=== PATIENT | female | born 1985 | race Caucasian/White ===

== ENCOUNTER → 2016-11-02 | Outpatient (CLI) | payer MEDICAID ==
[~2016-11-02] MED LIST: FERR200T PO; PREN1CHW7 PO; STRETAB
== END ==
LOC: HPND 08:25
PROVIDERS: ATTEND Obstetrics & Gynecology
DX: O98.513 Other viral diseases complicating pregnancy, third trimester (principal); O09.293 Supervision of pregnancy with other poor reproductive or obstetric history, third trimester; Z3A.31 31 weeks gestation of pregnancy
CPT/HCPCS: 76816

== ENCOUNTER 2016-11-17 20:26 | Emergency (ER) | payer MEDICAID ==
--- NOTE | 2016-11-17 21:35 | PD ---
HPI Chief Complaint contractions Date Seen: Nov 17, 2016 Travel History International Travel<30 Days: No Contact w/Intl Traveler<30Days: No History of Present Illness HPI 31 yo @ 35w2d. care with [facility] this third trimester after transfer of care. Hep C. Patient reports irregular UC this third trimester. Her SVE is the office last week was 1cm/thick per patient. Today she reports UC every 12 min this evening , now a little closer and a little stronger. No LOF, VB. +FM. Denies urinary symptoms or GI symptoms. History Past Medical History Narrative Medical Hep C Smoker Obstetric History Obstetric History x 4 Past Surgical History Surgical History: No Previous Surgery Family History Family History: Negative Social History Alcohol Use: No Tobacco Use: Yes Substance Abuse: No Allergies-Medications (Allergen,Severity, Reaction): Coded Allergies: Flagyl (Verified Allergy, Intermediate, fever, nausea, diarrhea, 11/13/16) Iodine (Verified Allergy, Intermediate, Anaphylaxis, 11/13/16) Penicillin (Verified Allergy, Intermediate, nausea, diarrhea, 11/13/16) Home Meds Active Scripts Vit W/ Ferric Phospha (Vitafol Gummies 3.33-0.333-34.8 mg)1 Chw Chw3.33 Chew PO DAILY #60 CHEW Ref 2 Prov:Steph Rios 10/26/16 Vit B Comp/C/FA/Iron Sulf/Ricardo (Stress Formula with Iron Tab)1 Each Tablet1 Caplet .ROUTE DAILY PRN (Nutritional Supplement) #30 CAPLET Ref 1 Prov:Steph Rios 10/19/16 Ferrous Sulfate (Feosol)200 Mg [id number] Mg PO DAILY #30 TAB Ref 1 Prov:Steph Rios 10/19/16 W/O Vit A W/ Fe Carbo (Prenate Mini 18-0.6-0.4-350 mg)1 Cap Cap Sample #2 Prov:Steph Rios 10/19/16 Review of Systems General / Constitutional: No: Fever, Chills Eyes: No: Blurred Vision HENT: No: Headaches, Lightheadedness Cardiovascular: No: Chest Pain or Discomfort, Palpitations Respiratory: No: Cough, Short of Breath Gastrointestinal: Abdominal Pain (mild contractions), No: Nausea, Vomiting, Diarrhea Genitourinary: No: Urgency, Frequency, Dysuria, Discharge, Vaginal Bleeding Musculoskeletal: No: Limited ROM, Weakness, Cramping, Edema Skin: No Rash, No Itching, No Lesions Neurologic: No: Syncope, Focal Abnormalities Physical Exam Narrative GENERAL: Well-nourished, well-developed patient. NAD SKIN: Warm and dry. HEAD: Normocephalic and atraumatic. EYES: No scleral icterus. No injection or drainage. ENT: No nasal drainage noted. Mucous membranes pink. Airway patent. NECK: trachea midline. No JVD. CARDIOVASCULAR: Regular rate RESPIRATORY: No accessory muscle use. ABDOMEN/GI: Abdomen soft, non-tender, no rebound, no guarding Gravid GENITOURINARY: External Genitalia: intact and normal in appearance BUS glands: [-] SVE: 1cm external OS, internal OS closed, 50%/-3 TOCO: Irregular UC q 4-7min FHT's: Category: I Baseline:120 Reactive: + Variability: mod Decels: [-] EXTREMITIES: No cyanosis or edema. BACK: Nontender without obvious deformity. NEUROLOGICAL: Awake and alert. Motor and sensory grossly within normal limits. Normal speech. Data Data Vital Signs Reviewed: Yes Orders Vital Signs (Adult) .ON ADMISSION (11/17/16 20:58) ^ Labor Status (11/17/16 20:58) ^ Non Stress Test (11/17/16 20:58) ^ Hydration (11/17/16 20:58) Labs UA dip: dark urine, +Moderate ketones MDM Narrative Course / MDM 35 weeks Irregular UC, No labor or cervical dilation Dehydration UA with ketones Oral hydration Terb given x 1 CAT I FHT Plan Resolved UC D/c home Hydration and labor precautions F/[facility] with [facility] Diagnosis Diagnosis: Primary Impression: uterine contractions in third trimester, antepartum Additional Impressions: Dehydration 35 weeks gestation of Victoria Hudson MD Nov 17, 2016 21:35
[2016-11-17] MEDS ORDERED: TERBUTALINE INJ 1 MG/ML AMP SQ ONE (22:50)
[2016-11-17 22:53] VITALS: BP 111/72; PULSE 70
[2016-11-17 23:00] VITALS: RESP 18
== END 2016-11-18 00:30 | disposition home or self-care (01) ==
LOC: HOBED 20:26
DX: O62.9 Abnormality of forces of labor, unspecified (principal); O26.893 Other specified pregnancy related conditions, third trimester; E86.0 Dehydration; Z86.19 Personal history of other infectious and parasitic diseases; Z72.0 Tobacco use; Z3A.35 35 weeks gestation of pregnancy
CPT/HCPCS: 59025; 96372; 99284; J3105

== ENCOUNTER → 2016-11-29 | Outpatient (CLI) | payer MEDICAID ==
[~2016-11-29] MED LIST changes: -FERR200T PO
== END ==
LOC: HPND 08:48
PROVIDERS: ATTEND Obstetrics & Gynecology
DX: O98.513 Other viral diseases complicating pregnancy, third trimester (principal); O09.293 Supervision of pregnancy with other poor reproductive or obstetric history, third trimester; Z3A.35 35 weeks gestation of pregnancy
CPT/HCPCS: 76816

== ENCOUNTER 2016-12-28 09:43 | Inpatient (IN) | payer MEDICAID ==
[2016-12-28] VITALS (66 sets, daily range): BP systolic 91–212; BP diastolic 42–94; PULSE 18–134; RESP 17–18; TEMP 97.7–98.6; O2SAT 100
--- NOTE | 2016-12-28 10:56 | HHI.HP ---
HPI Chief Complaint leaking fluid Date Seen: Dec 28, 2016 Time Seen: 10:40 Travel History International Travel<30 Days: No Contact w/Intl Traveler<30Days: No Known Affected Area: No History of Present Illness HPI Pt is a 31 yo at 39 weeks and 2 days. pt presents with h/o ruptured membranes at 07:30. She does not feel any contractions. Cervix is 4cm, and Amniosure confirms SROM. care t [facility], previously uncomplicated. GBS negative. 1/2 PPD smoker Weeks Gestation: 39 Para: 4 : 5 History Past Medical History Narrative Medical Hep C , not on medication, low viral load Past Surgical History Surgical History: No Previous Surgery Family History Family History: Negative Social History Alcohol Use: No Tobacco Use: Yes (/2 PPD) Substance Abuse: No Allergies-Medications (Allergen,Severity, Reaction): Coded Allergies: iodine (Unverified Allergy, Intermediate, Anaphylaxis, 12/22/16) metronidazole (Unverified Allergy, Intermediate, fever, nausea, diarrhea, 12/22/16) penicillin G (Unverified Allergy, Intermediate, nausea, diarrhea, 12/22/16) potassium iodide (Unverified Allergy, Intermediate, Anaphylaxis, 12/22/16) povidone-iodine (Unverified Allergy, Intermediate, Anaphylaxis, 12/22/16) sodium iodide (Unverified Allergy, Intermediate, Anaphylaxis, 12/22/16) sodium iodide (Unverified Allergy, Intermediate, Anaphylaxis, 12/22/16) Home Meds Active Scripts Vit W/ Ferric Phospha (Vitafol Gummies 3.33-0.333-34.8 mg) 1 Chw Chw, 3.33 CHEW PO DAILY, #60 CHEW 2 Refills Prov:Steph Rios 10/26/16 Vit B Comp/C/FA/Iron Sulf/Ricardo (Stress Formula with Iron Tab) 1 Each Tablet, 1 CAPLET .ROUTE DAILY Y for Nutritional Supplement, #30 CAPLET 1 Refill Prov:Steph Rios 10/19/16 W/O Vit A W/ Fe Carbo (Prenate Mini 18-0.6-0.4-350 mg) 1 Cap Cap Prov:Steph Rios 10/19/16 Review of Systems Except as stated in HPI: all other systems reviewed are Neg Physical Exam Narrative GENERAL: Well-nourished, well-developed patient. SKIN: Warm and dry. HEAD: Normocephalic and atraumatic. EYES: No scleral icterus. No injection or drainage. ENT: No nasal drainage noted. Mucous membranes pink. Airway patent. NECK: Supple, trachea midline. No JVD. CARDIOVASCULAR: Regular rate and rhythm without murmurs, gallops, or rubs. RESPIRATORY: Breath sounds equal bilaterally. No accessory muscle use. BREASTS: Bilateral exam showed no masses , no retractions, no nipple discharge. ABDOMEN/GI: Abdomen soft, non-tender, bowel sounds present, no rebound, no guarding Gravid to [-] weeks size Fundal Height: [-] GENITOURINARY: External Genitalia: intact and normal in appearance BUS glands: [-] Cervix: [soft] Dilatation: [4cm-] Effacement: [705-] Station: [-] Presentation: [-vertex] Membranes: [ ruptured] Uterine Contractions: [1-2 minutes-] FHT's: Category: [-1 Baseline: [130] Reactive: [] Variability: [-] Decels: [none] EXTREMITIES: No cyanosis or edema. BACK: Nontender without obvious deformity. No CVA tenderness. NEUROLOGICAL: Awake and alert. Motor and sensory grossly within normal limits. Five out of 5 muscle strength in all muscle groups. Normal speech. Caprini VTE Risk Assessment Caprini Risk Assessment Model Point Value = 1 Point Value = 2 Point Value = 3 Point Value = 5 Age 41-60 Minor surgery BMI > 25 kg/m2 Swollen legs Varicose veins or History of unexplained or recurrent spontaneous Oral contraceptives or hormone replacement Sepsis (< 1 month) Serious lung disease, including pneumonia (< 1 month) Abnormal pulmonary function Acute myocardial infarction Congestive heart failure (< 1 month) History of inflammatory bowel disease Medical patient at bed rest Age 61-74 Arthroscopic surgery Major open surgery (> 45 min) Laparoscopic surgery (> 45 min) Malignancy Confined to bed (> 72 hours) Immobilizing plaster cast Central venous access Age >= 75 History of VTE Family history of VTE Factor V Leiden Prothrombin [id number] Lupus anticoagulant Anticardiolipin antibodies Elevated serum homocysteine Heparin-induced thrombocytopenia Other congenital or acquired thrombophilia Stroke (< 1 month) Elective arthroplasty Hip, pelvis, or leg fracture Acute spinal cord injury (< 1 month) Prophylaxis Regimen Total Risk Factor Score Risk Level Prophylaxis Regimen 0-1 Low Early ambulation 2 Moderate Order ONE of the following: *Sequential Compression Device (SCD) *Heparin 5000 units SQ BID 3-4 Higher Order ONE of the following medications: *Heparin 5000 units SQ TID *Enoxaparin/Lovenox 40 mg SQ daily (WT < 150 kg, CrCl > 30 mL/min) *Enoxaparin/Lovenox 30 mg SQ daily (WT < 150 kg, CrCl > 10-29 mL/min) *Enoxaparin/Lovenox 30 mg SQ BID (WT < 150 kg, CrCl > 30 mL/min) AND/OR *Sequential Compression Device (SCD) 5 or more Highest Order ONE of the following medications: *Heparin 5000 units SQ TID (Preferred with Epidurals) *Enoxaparin/Lovenox 40 mg SQ daily (WT < 150 kg, CrCl > 30 mL/min) *Enoxaparin/Lovenox 30 mg SQ daily (WT < 150 kg, CrCl > 10-29 mL/min) *Enoxaparin/Lovenox 30 mg SQ BID (WT < 150 kg, CrCl > 30 mL/min) AND *Sequential Compression Device (SCD) Data Data Vital Signs Reviewed: Yes Group B Strep: Negative Assessment/Plan Assessment and Plan 31 yo at 39 weeks and 2 days Admit for admission in labor GBS negative Perfecto Pandya MD Dec 28, 2016 10:56
[2016-12-28] MEDS ORDERED: LACTATED RINGER'S 1000 ML INJ 1,000 ML IV PRN ×2 (10:57→11:31)
[2016-12-28] MEDS ORDERED: LACTATED RINGER'S 1000 ML INJ 1,000 ML IV SCH (10:57)
[2016-12-28] MEDS ORDERED: OXYTOCIN 30 UNITS-500ML PREMIX 500 ML IV ONE ×2 (11:00→11:45)
[2016-12-28] MEDS ORDERED: LIDOCAINE HCL 1% 50 ML VIAL I-DERMAL PRN ×2 (11:00→11:45)
[2016-12-28] MEDS ORDERED: CITRIC ACID-SODIUM CITRATE LIQ 30 ML UDC PO SCH ×2 (11:00→11:45)
[2016-12-28] MEDS ORDERED: LIDOCAINE HCL 1% 50 ML VIAL INFIL PRN ×2 (11:00→11:45)
[2016-12-28] MEDS ORDERED: SODIUM CHLORID 0.9% 500 ML INJ 500 ML IV PRN ×2 (11:00→11:45)
[2016-12-28] MEDS ORDERED: SODIUM CHLOR 0.9% 1000 ML INJ 1,000 ML IV PRN ×2 (11:17→11:51)
[2016-12-28 11:39] LABS: AUTOMATED NEUTROPHIL # 7.7 TH/MM3 (1.8-7.7); BASOPHIL # 0.1 TH/MM3 (0-0.2); BASOPHIL % 0.9 % (0.0-2.0); EOSINOPHIL # 0.1 TH/MM3 (0-0.4); HEMATOCRIT 36.8 % (35.0-46.0); HEMO FLAGS DIFF FINAL; LYMPH % 20.5 % (9.0-44.0); LYMPHOCYTE # 2.2 TH/MM3 (1.0-4.8); MEAN CORPUSCULAR HEMOGLOBIN 30.9 PG (27.0-34.0); MEAN CORPUSCULAR HGB CONC 33.2 % (32.0-36.0); MONO % 5.2 % (0.0-8.0); NEUT % 72.4 % (16.0-70.0); PLATELET COUNT 142 TH/MM3 (150-450); RED BLOOD COUNT 3.96 MIL/MM3 (4.00-5.30); RED CELL DISTRIBUTION WIDTH 12.9 % (11.6-17.2); WHITE BLOOD COUNT 10.7 TH/MM3 (4.0-11.0)
[2016-12-28] MEDS ORDERED: MINERAL OIL 10 ML VIAL TOPICAL PRN (11:45)
[2016-12-28] MEDS ORDERED: ONDANSETRON HCL 4 MG/2 ML VIAL IV PRN (11:45)
--- NOTE | 2016-12-28 12:10 | PD.LABORPN ---
Subjective Subjective Patient is resting comfortably in bed, feeling occasional contractions. Objective Vital Signs Vital Signs Date Time Temp Pulse Resp B/P (MAP) Pulse Ox O2 Delivery O2 Flow Rate FiO2 12/28/16 11:15 18 Objective Pelvic Exam: Cervix: posterior Dilatation: 4 Effacement: 50 Station: -2 Presentation: vertex Membranes: SROM clear fluid Uterine Contractions: occasional FHT's: Category: I Baseline: 140 Reactive: + Variability: moderate Decels: none Weeks Gestation: 39 Gest Age Assessed Date: Dec 28, 2016 Gest Age Assessed Time: 12:08 Pt started active labor?: Yes Active labor start date: Dec 28, 2016 Active labor start time: 12:10 Medical induction of labor?: No Artificial rupture of membrane: No Assessment/Plan Assessment and Plan 31 year old at 39-2/7 weeks gestation. 1. IUP- Category I tracing, reassuring. 2. Labor- SROM, clear fluid. Cervical change noted, will continue to monitor for cervical change and augment with Pitocin PRN 3. GBS negative dw Cindy Meyers MD, R3 Dec 28, 2016 12:10
[2016-12-28] MEDS ORDERED: OXYTOCIN 30 UNITS-500ML PREMIX 500 ML IV SCH ×2 (13:30→19:15)
--- NOTE | 2016-12-28 13:31 | PD.LABORPN ---
Subjective Subjective Patient resting in bed comfortably, feeling contractions. Objective Vital Signs Vital Signs Date Time Temp Pulse Resp B/P (MAP) Pulse Ox O2 Delivery O2 Flow Rate FiO2 12/28/16 12:15 18 12/28/16 12:00 98.2 12/28/16 12:00 17 12/28/16 11:15 18 Objective Pelvic Exam: Cervix: posterior Dilatation: 4 Effacement: 50 Station: -2 Presentation: vertex Membranes: SROM clear fluid Uterine Contractions: occasional FHT's: Category: I Baseline: 150 Reactive: + Variability: moderate Decels: none Weeks Gestation: 39 Gest Age Assessed Date: Dec 28, 2016 Gest Age Assessed Time: 12:08 Pt started active labor?: Yes Active labor start date: Dec 28, 2016 Active labor start time: 12:10 Medical induction of labor?: No Artificial rupture of membrane: No Assessment/Plan Assessment and Plan 31 year old at 39-2/7 weeks gestation. 1. IUP- Category I tracing, reassuring. 2. Labor- SROM, clear fluid. No cervical change noted, IUPC placed. Will initiate Pitocin 2-2-30. 3. GBS negative. 4. Anticipate vaginal delivery. Cindy Hernandes Dr., MD, R3 Dec 28, 2016 13:31
[2016-12-28] MEDS: LACTATED RINGER'S 1000 ML INJ 1,000 ML IV SCH ×2 (14:55→17:31)
[2016-12-28] MEDS ORDERED: fentaNYL 2MCG-BUPIV 0.125% INJ 100 ML ONE (15:06)
[2016-12-28] MEDS ORDERED: ePHEDrine/NS 25 MG/5 ML SYR ONE (15:07)
[2016-12-28] MEDS ORDERED: MEASLES, MUMPS, RUBELLA VACCINE 0.5 ML VIAL SQ ONE (16:00)
[2016-12-28] MEDS ORDERED: DIPHTH/TETANUS/ACEL PERTUSSIS (BOOSTER) 0.5 ML VIAL/PFS IM ONE (16:00)
--- NOTE | 2016-12-28 16:13 | PD.LABORPN ---
Subjective Subjective Patient starting to feel more pressure. Otherwise comfortable. Objective Vital Signs Vital Signs Date Time Temp Pulse Resp B/P (MAP) Pulse Ox O2 Delivery O2 Flow Rate FiO2 12/28/16 16:00 17 12/28/16 15:56 80 108/51 (70) 12/28/16 15:55 80 12/28/16 15:50 75 119/72 (88) 12/28/16 15:50 76 12/28/16 15:46 88 120/42 (68) 12/28/16 15:45 76 12/28/16 15:44 18 12/28/16 15:41 101 121/58 (79) 12/28/16 15:40 82 12/28/16 15:36 78 111/83 (92) 12/28/16 15:30 86 138/94 (109) 12/28/16 15:15 17 12/28/16 14:45 17 12/28/16 14:15 17 12/28/16 13:45 18 12/28/16 13:45 98.6 12/28/16 12:15 18 12/28/16 12:00 98.2 12/28/16 12:00 17 12/28/16 11:15 18 Objective Pelvic Exam: Cervix: midposition Dilatation: 7 Effacement: 80 Station: -2 Presentation: vertex Membranes: SROM, clear fluid Uterine Contractions: q1-3min FHT's: Category: I Baseline: 120 Reactive: + Variability: moderate Decels: none Weeks Gestation: 39 Gest Age Assessed Date: Dec 28, 2016 Gest Age Assessed Time: 12:08 Pt started active labor?: Yes Active labor start date: Dec 28, 2016 Active labor start time: 12:10 Medical induction of labor?: No Artificial rupture of membrane: No Assessment/Plan Assessment and Plan 31 year old at 39-2/7 weeks gestation. 1. IUP- Category I tracing, reassuring. 2. Labor- SROM, clear fluid. Cervical change noted on 2milliunits/min of Pitocin , IUPC in place, contractions adequate. 3. GBS negative. 4. Anticipate vaginal delivery. dw Dr. Pandya and Dr. Abraham R1 Cindy Dave MD, R3 Dec 28, 2016 16:13
[2016-12-28] MEDS ORDERED: ACETAMIN 325 MG/BUTALBITAL 50 MG/CAFFEINE 40 MG TAB PO ONE (17:00)
[2016-12-28 18:36] LABS: BLOOD, URINE NEG (NEG); GLUCOSE,URINE NEG (NEG); KETONE, URINE 40 mg/dL (NEG); NITRITE,URINE NEG (NEG); PH, URINE 7.5 (5.0-8.5); SQUAMOUS EPITHELIAL CELL URINE <1 /hpf (0-5); URINE COLOR LIGHT-YELLOW (YELLW/STRAW)
[2016-12-28 18:37] LABS: COMMENT (UR) CULT NOT INDICATED; CULTURE IF INDICATED CULT NOT INDICATED
[2016-12-28] MEDS ORDERED: ONDANSETRON ODT 4 MG TAB PO PRN (19:15)
[2016-12-28] MEDS ORDERED: BENZOCAINE 20% TOPICAL SPRAY 60 ML CAN TOPICAL PRN (19:15)
[2016-12-28] MEDS ORDERED: WITCH HAZEL 50%/GLYCERIN 12.5% 40 PAD JAR TOPICAL PRN (19:15)
[2016-12-28] MEDS ORDERED: DOCUSATE SODIUM 50 MG/SENNA 8.6 MG TAB PO PRN (19:15)
[2016-12-28] MEDS ORDERED: ALUMINUM/MAGNESIUM/SIMETH 30 ML CUP PO PRN (19:15)
[2016-12-28] MEDS ORDERED: ZOLPIDEM TARTRATE 5 MG TAB PO PRN (19:15)
[2016-12-28] MEDS ORDERED: SODIUM CHLORIDE 0.9% FLUSH 10 ML FLUSH IV FLUSH PRN (19:15)
[2016-12-28] MEDS ORDERED: ACETAMINOPHEN 325 MG TAB PO PRN (19:15)
--- NOTE | 2016-12-28 19:19 | PD.OB.DELI ---
Weeks gestation: 39 Gest age assessed date: Dec 28, 2016 Gest age assessed time: 12:08 Pt started active labor?: Yes Active labor start date: Dec 28, 2016 Active labor start time: 12:10 Medical induction of labor?: No Artificial rupture of membrane: No Anesthesia: Epidural Episiotomy: None Vaginal Delivery: Normal Presentation: Occiput anterior Nuchal Cord: None Delayed cord clamping (45 sec): Yes Infant: Female Delivery date: Dec 28, 2016 Delivery time: 19:01 One Minute : 9 Five Minute : 9 Weight: 3070g Placenta: Spontaneous delivery Laceration: No lacerations Estimated blood loss: 200cc Additional Information Patient reported feeling vaginal pressure and was examined and noted to be fully dilated and at +1 station. delivered over course of single contraction. Cord clamped and divided after 45 seconds and infant placed skin to skin with mother. Placenta mebranes delivered spontaneously, 3 vessel cord. Perineum intact. Perfecto Pandya MD Dec 28, 2016 19:19
[2016-12-28] MEDS ORDERED: SODIUM CHLORIDE 0.9% FLUSH 10 ML FLUSH IV FLUSH SCH (21:00)
[2016-12-29] MEDS: oxyCODONE/ACETAMINOPHEN 5 MG/325 MG TAB PO PRN ×3 (00:59→12:51)
[2016-12-29] MEDS: IBUPROFEN 600 MG TAB PO PRN ×3 (01:00→12:51)
[2016-12-29 08:00] VITALS: BP 96/57; PULSE 64; RESP 14; TEMP 97.7
--- NOTE | 2016-12-29 09:02 | HHI.OB ---
Subjective Post Day: 1 Remarks day # 1. AFVSS overnight. Pain is tolerable. Decreased lochia. Denies dysuria. No breast tenderness. She is feeding the baby via breast. Appetite good. No nausea or vomiting. Ambulating well. Denies calf pain, shortness of breath, or cough. Otherwise, she is doing well this morning and has no other complaints. Objective Vitals/I&O Vital Signs Date Time Temp Pulse Resp B/P (MAP) Pulse Ox O2 Delivery O2 Flow Rate FiO2 12/28/16 23:30 98.3 67 18 98/65 (76) 12/28/16 21:08 18 12/28/16 21:01 72 97/70 (79) 12/28/16 20:46 71 121/70 (87) 12/28/16 20:31 68 98/54 (69) 12/28/16 20:25 98.1 18 12/28/16 20:17 72 102/63 (76) 12/28/16 20:15 18 18 12/28/16 19:56 18 12/28/16 19:46 64 96/58 (71) 12/28/16 19:45 18 12/28/16 19:34 18 12/28/16 19:31 66 110/59 (76) 12/28/16 19:17 71 114/68 (83) 12/28/16 19:13 134 212/89 (130) 12/28/16 19:10 17 12/28/16 19:00 18 12/28/16 19:00 79 12/28/16 19:00 89 100 12/28/16 18:31 71 117/54 (75) 12/28/16 18:30 74 12/28/16 18:20 79 12/28/16 18:15 59 12/28/16 18:15 65 103/54 (70) 12/28/16 18:10 70 12/28/16 18:05 66 12/28/16 18:00 70 111/65 (80) 12/28/16 18:00 66 12/28/16 18:00 18 12/28/16 17:55 69 12/28/16 17:50 66 12/28/16 17:45 68 110/68 (82) 12/28/16 17:45 66 12/28/16 17:40 68 12/28/16 17:35 62 12/28/16 17:31 63 110/56 (74) 12/28/16 17:30 17 12/28/16 17:30 62 12/28/16 17:25 67 12/28/16 17:20 62 12/28/16 17:15 18 12/28/16 17:15 64 91/77 (82) 12/28/16 17:15 101 12/28/16 17:10 65 12/28/16 17:05 69 12/28/16 17:01 66 113/62 (79) 12/28/16 17:00 70 12/28/16 16:55 71 12/28/16 16:50 72 12/28/16 16:45 68 117/72 (87) 12/28/16 16:45 66 12/28/16 16:45 17 12/28/16 16:40 71 12/28/16 16:35 67 12/28/16 16:30 68 115/74 (88) 12/28/16 16:30 97.7 12/28/16 16:30 75 12/28/16 16:25 73 12/28/16 16:20 72 12/28/16 16:15 70 107/64 (78) 12/28/16 16:15 68 12/28/16 16:10 76 12/28/16 16:00 17 12/28/16 15:56 80 108/51 (70) 12/28/16 15:55 80 12/28/16 15:50 75 119/72 (88) 12/28/16 15:50 76 12/28/16 15:46 88 120/42 (68) 12/28/16 15:45 76 12/28/16 15:44 18 12/28/16 15:41 101 121/58 (79) 12/28/16 15:40 82 12/28/16 15:36 78 111/83 (92) 12/28/16 15:30 86 138/94 (109) 12/28/16 15:15 17 12/28/16 15:06 18 12/28/16 14:45 17 12/28/16 14:15 17 12/28/16 13:45 18 12/28/16 13:45 98.6 8/24/17 12:15 18 12/28/16 12:00 98.2 12/28/16 12:00 17 12/28/16 11:15 18 Objective Remarks GENERAL: Well-nourished, well-developed patient. CARDIOVASCULAR: Regular rate and rhythm without murmurs, gallops, or rubs. RESPIRATORY: Breath sounds equal bilaterally. No accessory muscle use. ABDOMEN/GI: Abdomen soft, non-tender. Fundus: Firm, non-tender at umbilicus. GENITOURINARY: Light to moderate bleeding. EXTREMITIES: No cyanosis or edema, non-tender, without signs of DVT. Medications and IVs Current Medications Medications (Trade) Dose Ordered Sig/Carmella Route Start Time Stop Time Status Last Admin Lactated Ringer's 1,000 ml @ 125 mls/hr Q8H IV 12/28/16 11:31 12/28/16 17:31 Lactated Ringer's 1,000 ml @ 3,000 mls/hr Q20M PRN IV 12/28/16 11:31 Sodium Chloride 500 ml @ 1,000 mls/hr ONCE PRN IV 12/28/16 11:45 12/30/16 11:44 Sodium Chloride 1,000 ml @ 100 mls/hr Q10H PRN IV 12/28/16 11:51 (Xylocaine 1% Inj (50 ml)) 0.1 ml UNSCH X1 PRN I-DERMAL 12/28/16 11:45 12/31/16 11:44 (Bicitra Liq) 30 ml PANTOGRAPH OPERATOR PO 12/28/16 11:45 01/01/17 11:44 (Zofran Inj) 4 mg Q6H PRN IV 12/28/16 11:45 12/28/16 17:07 (fentaNYL INJ) 50 mcg Q1H PRN IV PUSH 12/28/16 11:45 (fentaNYL INJ) 100 mcg Q1H PRN IV PUSH 12/28/16 11:45 (Xylocaine 1% Inj (50 ml)) 10 ml UNSCH X1 PRN INFIL 12/28/16 11:45 12/30/16 11:44 (Muri-Lube Oil) 10 ml UNSCH PRN TOPICAL 12/28/16 11:45 (NS Flush) 2 ml BID IV FLUSH 12/28/16 21:00 (NS Flush) 2 ml UNSCH PRN IV FLUSH 12/28/16 19:15 (Tylenol) 650 mg Q4H PRN PO 12/28/16 19:15 (Motrin) 600 mg Q6H PRN PO 12/28/16 19:15 12/29/16 06:15 (Percocet 5-325 Mg) 1 tab Q4H PRN PO 12/28/16 19:15 12/29/16 06:14 (Americaine 20% Top Spr) 1 spray Q4H PRN TOPICAL 12/28/16 19:15 (Tucks Pads) 1 applic QID PRN TOPICAL 12/28/16 19:15 (Sharri-Colace) 2 tab Q12H PRN PO 12/28/16 19:15 (Ambien) 5 mg HS PRN PO 12/28/16 19:15 (Mag-Al Plus Susp Liq) 15 ml Q8H PRN PO 12/28/16 19:15 (Zofran Odt) 4 mg Q6H PRN PO 12/28/16 19:15 Assessment/Plan Assessment and Plan 31 yo PPD# 0 s/p . -Continue routine care. -Motrin PRN pain. -Encouraged OOB. Advised pelvic rest for 6 wks. -Will need a f/u appt. within 6 wks. -Re: ctrl, she wishes to get a [facility] outpatient -D/c today or tomorrow. Carlos Abraham MD R1 Dec 29, 2016 09:02
[2016-12-29] MEDS ORDERED: SENN1TAB PO (19:52)
[2016-12-29] MEDS ORDERED: IBUP-232 PO (19:52)
--- NOTE | 2016-12-29 19:53 | HHI.DCPOC ---
Discharge Care Plan Diagnosis: (1) Vaginal delivery Report Symptoms to Your Doctor -Temperature above 100.5 degrees -Redness, of incision or excessive or foul smelling drainage -Unusual pain or calf pain -Increased vaginal bleeding -Painful or difficulty urinating -Feelings of extreme sadness or anxiety after 2 weeks Goals to Promote Your Health * To prevent worsening of your condition and complications * To maintain your health at the optimal level Directions to Meet Your Goals Take your medications as prescribed Follow your dietary instruction Follow activity as directed Ensure plenty of rest for recovery Drink fluids for hydration Keep your appointments as scheduled Take your immunizations and boosters as scheduled If your symptoms worsen call your PCP, if no PCP go to Urgent Care Center or Emergency Room Smoking is Dangerous to Your Health. Avoid second hand smoke Call the 24-hour crisis hotline for domestic abuse at Carlos Abraham MD R1 Dec 29, 2016 19:53
[2017-01-03 08:23] LABS: ECSTASY (MDMA) UR NEG (NEG); HEROIN (6-ACETYLMORPHINE) UR NEG (NEG); OBMETHADONE UR NEG (NEG); PHENCYCLIDINE URINE NEG (NEG)
[2017-01-03 08:24] LABS: BATH SALTS (MDPV) UR NEG (NEG); GABAPENTIN UR NEG (NEG); HYDROMORPHONE U NEG (NEG); K2 SPICE UR NEG (NEG)
== END 2016-12-29 20:39 | disposition home or self-care (01) | DRG 774 ==
LOC: HOBED 09:43 → H2EB 10:43 → H1EA 21:20
PROVIDERS: ADMIT Obstetrics & Gynecology; ATTEND Obstetrics & Gynecology
PROC: 10E0XZZ Delivery of Products of Conception, External Approach (ICD-10-PCS; principal; 2016-12-28)
PROC: 00HU33Z Insertion of Infusion Device into Spinal Canal, Percutaneous Approach (ICD-10-PCS; 2016-12-28)
PROC: 3E0R3CZ (ICD-10-PCS; 2016-12-28)
DX: O99.334 Smoking (tobacco) complicating childbirth (principal); O98.42 Viral hepatitis complicating childbirth; B19.20 Unspecified viral hepatitis C without hepatic coma; F17.210 Nicotine dependence, cigarettes, uncomplicated; Z3A.39 39 weeks gestation of pregnancy; Z37.0 Single live birth
CPT/HCPCS: 59025; 80307; 81001; 84112; 85025; 86900; 86901; G0481; J2405; J2590; J7120